=== PATIENT | female | born 1975 | race Caucasian/White ===

== ENCOUNTER 2017-01-30 16:17 | Emergency (ER) | payer MEDICARE, MEDICAID ==
--- NOTE | 2017-01-31 23:41 | ER ---
ADMIT: 01/30/2017 RM/LOC: ER [facility] MR#: [id number] [place], [place] [id number] ALONSO CROWLEY [address] [place] [id number] Emergency Room Report SEX: F AGE: 41 : 1975 DATE: 01/30/2017 TIME: 1617. Please refer to my T-sheet for complete H and P. HISTORY OF PRESENT ILLNESS: Briefly, the patient is a 41-year old, who comes in with palpitations and abdominal pain. She is actually from [place], came over here to be evaluated as she has had some chronicity of her abdominal pain. She also has diabetes and is here for evaluation. She has been going on two days. PHYSICAL EXAMINATION: VITAL SIGNS: Her vital signs are stable. HEENT: Grossly normal. LUNGS: Clear. HEART: Regular. No murmur. ABDOMEN: Soft, mildly tender diffusely, does not localize. SKIN: No rash. EMERGENCY DEPARTMENT COURSE: CBC was normal except hemoglobin 10.8. Chemistry is normal except potassium 3.6, CO2 of 21. UA which showed 20 white cells, 3 red blood cells, positive nitrite. EKG, sinus rhythm, rate 79, no change. I gave her Toradol 10 IM, Zofran 4 ODT, Cipro 500 p.o. She is ready for discharge. ASSESSMENT: 1. Palpitations. 2. Urinary tract infection. PLAN: Fluids. Return if worse. Cipro. Follow up with Dr. Velazquez this week. Madi Leon MD/ pam JOB #: [id number] CC: Sonido Moy MD, Attending Physician Shivam Velazquez, Family Physician
== END 2017-01-30 18:10 | disposition home or self-care (01) ==
LOC: ER 16:17
DX: N39.0 Urinary tract infection, site not specified (principal); R00.2 Palpitations; E11.9 Type 2 diabetes mellitus without complications; I10 Essential (primary) hypertension; Z90.89 Acquired absence of other organs